=== PATIENT | female | born 1995 | race Caucasian/White ===

== ENCOUNTER 2021-04-07 20:26 | Inpatient (IN) | payer MEDICARE, MEDICAID, SELFPAY ==
[2021-04-07 20:26] VITALS: BP 162/128; PULSE 104; RESP 16; TEMP 36.2; O2SAT 97; BMI 24.7
--- NOTE | 2021-04-07 20:44 | EDS_ITS ---
HPI History of Present Illness Chief Complaint: Substance Abuse Informant: patient and family Narrative Narrative: 26-year-old female states that she would like to go through detox for heroin and fentanyl abuse. The patient states that she was using heroin and fen tanyl before going to jail. She spent about 40 some days in jail and then got out and has continued to use over the past several months. She states that she last used yesterday. She was seen in the emergency department at [facility] yesterday and was referred here. She has previously done rehab in [place]. Patient states that she would like to be in her daughter's life. She states that right now she just feels poorly from the withdrawal symptoms. The patient both smokes and injects her opiates. She also states that she will do any type of drug if it is presented to her [facility] Medical History (Updated 04/07/21 @ 21:[address] David Garcia DO) Opiate addiction PTSD (post-traumatic stress disorder) Home Medications NK 04/07/21 [History Last Taken Unknown] Allergy/AdvReac Type Severity Reaction Status Date / Time Penicillins Allergy PT UNSURE Verified 04/07/21 20:29 OF REACTION Social History (Updated 04/07/21 @ 20:[address] David Garcia DO) Smoking Status: Current every day smoker tobacco type: cigarettes substance use type: heroin and opiates ROS ROS ED ROS Narrative Restlessness Constitutional Constitutional ED: Reports chills and sweats; Denies fever(s) or weight loss Eyes Eyes: Denies change in vision or diplopia ENT ENT ED: Denies ear pain, rhinorrhea or sore throat Cardiovascular Cardiovascular: Denies chest pain, orthopnea, palpitations or racing heartbeat Respiratory/Chest Respiratory/Chest: Denies cough, dyspnea or orthopnea Gastrointestinal Gastrointestinal: Reports abdominal pain and nausea; Denies diarrhea or vomiting Genitourinary Genitourinary ED: Denies dysuria, hematuria or urinary frequency Musculoskeletal Musculoskeletal: Denies arthralgias or myalgias Integumentary Denies abscess or rash Neurologic Neurologic: Reports headache(s); Denies weakness Psychiatric Psychiatric: Denies anxiety, depression, suicidal ideation or suicidal thoughts Endocrine Endocrinology: Denies polydipsia, polyphagia or polyuria Allergic/Immunologic Allergic/Immunologic ED: Denies mouth swelling, tongue swelling or urticaria EXAM Physical Exam Const Vital Signs: 04/07/21 20:26 Temperature 97.2 F L Temperature Source Temporal Pulse Rate 104 H Respiratory Rate 16 Blood Pressure 162/128 H Blood Pressure Mean 139 Pulse Ox 97 Oxygen Delivery Method Room Air Positive well nourished and well developed General Appearance ED: well developed HEENT Reports normocephalic, head/scalp atraumatic, TM's clear and moist mucous membranes HEENT Narrative: Rhinorrhea Negative for trauma Tympanic Membrane ED: Yes TM's clear Eyes PERRL and EOMs intact bilaterally Neck no lymphadenopathy, supple and no JVD Resp normal respiratory effort and clear to auscultation bilaterally Cardio regular rate, regular rhythm and no murmurs GI normal to inspection, nondistended, normoactive bowel sounds and non-tender Palpation: soft Back/Spine no CVA tenderness and normal ROM Extremity Extremity Narrative: Piloerection General Extremety ED: Negative for edema General Extremity: Negative for edema Neuro oriented x3 and CN's II-XII intact bilaterally Sensorium / Orientation: alert Motor Exam: strength 5/5 throughout Psych mental status grossly normal Mood & Affect: Negative for depressed or tearful Skin no rashes or lesions noted and no wounds MDM MDM MDM Narrative Medical decision making narrative: Patient is positive for benzodiazepines cocaine and cannabinoids. test is negative. Patient informed case management that she does not get something for making her feel better she is going to leave. Patient was advised by myself by her grandmother by nursing and by case management that she is not going to feel perfectly fine while going through detox. It will be uncomfortable. I will speak with the hospitalist regarding admission. Lab Data Attestation: I reviewed the patient's lab results. Labs: Laboratory Results - last 24 hr 04/07/21 04/07/21 04/07/21 21:00 21:00 21:00 WBC 6.3 RBC 5.35 Hgb 15.2 H Hct 45.6 MCV 85.2 MCH 28.4 MCHC 33.3 RDW Std Deviation 42.8 RDW Coeff of Hong 13.8 Plt Count 229 MPV 11.8 Immature Gran % (Auto) 0.300 Neut % (Auto) 74.9 H Lymph % (Auto) 19.5 [place] % (Auto) 4.6 Eos % (Auto) 0.2 Baso % (Auto) 0.5 Absolute Neuts (auto) 4.7 Absolute Lymphs (auto) 1.22 Nucleated RBC % 0 Serum , Qual Urine Opiates Screen NEGATIVE Urine Methadone Screen NEGATIVE Ur Barbiturates Screen NEGATIVE Ur Phencyclidine Scrn NEGATIVE Ur Amphetamines Screen NEGATIVE U Methamphetamin-MDMA NEGATIVE U Benzodiazepines Scrn POSITIVE H Urine Cocaine Screen POSITIVE H U Cannabinoids Screen POSITIVE H Ur Drug Screen Comment Ethyl Alcohol < 3.0 04/07/21 21:00 WBC RBC Hgb Hct MCV MCH MCHC RDW Std Deviation RDW Coeff of Hong Plt Count MPV Immature Gran % (Auto) Neut % (Auto) Lymph % (Auto) [place] % (Auto) Eos % (Auto) Baso % (Auto) Absolute Neuts (auto) Absolute Lymphs (auto) Nucleated RBC % Serum , Qual NEGATIVE Urine Opiates Screen Urine Methadone Screen Ur Barbiturates Screen Ur Phencyclidine Scrn Ur Amphetamines Screen U Methamphetamin-MDMA U Benzodiazepines Scrn Urine Cocaine Screen U Cannabinoids Screen Ur Drug Screen Comment Ethyl Alcohol EKG Initial EKG: Attestation: I personally reviewed and interpreted this EKG as follows: Comments: Normal sinus rhythm with a ventricular rate of 72 bpm Discharge Plan Dx/Rx/DC Orders Clinical Impression: Opiate withdrawal, Drug abuse Disposition Disposition: Acute Care Hospital [facility]
--- NOTE | 2021-04-07 20:44 | EKG12_ITS ---
Test Reason : DYSRYTHMIA Blood Pressure : / mmHG Vent. Rate : 072 BPM Atrial Rate : 072 BPM P-R Int : 130 ms QRS Dur : 096 ms QT Int : 386 ms P-R-T Axes : 074 082 068 degrees QTc Int : 422 ms Normal sinus rhythm Normal ECG Confirmed by AMARI ROCHA, STEPHIE ([id number]), development editor LUCILLE THORPE ([id number]) on 04/09/2021 10:54:45 AM Referred By: ROBERT Confirmed By:STEPHIE FITZPATRICK MD
[2021-04-07 21:10] LABS: Absolute Lymphocyte Count 1.22 X10^3/uL (0.83-4.51); Absolute Neutrophil Count 4.7 X10^3/uL (2.0-7.7); Basophil# 0.03 X10^3/uL; Basophil% 0.5 % (0-1); Eosinophil# 0.01 X10^3/uL; Eosinophils% 0.2 % (0-5); Hematocrit 45.6 % (37-47); Hemoglobin 15.2 g/dL (12.0-15.0); Lymphocyte # 1.22 X10^3/ul (0.83-4.51); Lymphocyte % 19.5 % (19-41); Mean Corp Hgb Conc 33.3 g/dL (32-36); Mean Corpuscular Hgb 28.4 pg (27.0-32.0); Mean Corpuscular Volume 85.2 fL (81-99); Mean Platelet Vol. 11.8 fl (6.2-12.0); Monocyte# 0.29 X10^3/uL; Monocyte% 4.6 % (0-10); NRBC Flagged by Analyzer 0 % (0-5); Neutrophil % 74.9 % (47-70); Platelet Count 229 K/mm3 (150-450); RBC Distribution Width CV 13.8 % (11.6-14.6); RBC Distribution Width SD 42.8 fl (35.1-43.9); Red Blood Count 5.35 M/mm3 (4.2-5.4); White Blood Count 6.3 K/mm3 (4.4-11.0)
--- NOTE | 2021-04-07 21:21 | CM.ED ---
MICHAEL Note MICHAEL met with patient and her grandmother, Razia Odonnell [phone]. Patient reports that she does at least 2 grams of fentanyl a day. Last use was Friday at 4am. Patient reports she uses everything including crack. Patient completed the [facility] in [place] in 2020. Patient said that after she completed the program she wanted to still get high.Patient's grandmother said that patient is linked with Ramona Young (Kyle) from [facility] [phone]. Patient has been linked with [employer] and [facility] in the past but reports she has not been going to her appointments. Patient is homeless. Patient's mother has custody of her 2 children that are living. Patient said that she is withdrawing and asked about medication. SW explained the [facility] program including the securing of all her belongings and no phones. Grandmother said that patient does not have a phone. Patient was restless during this interview and made statement If i don't get stuff to feel better I am going home. However, later patient voiced that she wanted to participate in the [facility] program. MICHAEL called [facility] and spoke to Matilda. Matilda will follow up with patient on 04/08/21. Autumn TONY
[2021-04-07 21:34] LABS: Internal QC Validated? YES +Cl - CLEAR BKGD; Pregnancy, Serum, hCG Quali. NEGATIVE Negative
[2021-04-07 21:39] LABS: Alcohol, Blood (Medical)-Serum < 3.0 mg/dL; Amphetamine Urine VISTA NEGATIVE (<1000 ng/mL); Barbiturate Urine VISTA NEGATIVE (< 200 ng/mL); Benzodiazepine Urine VISTA POSITIVE (< 200 ng/mL); Cocaine Urine VISTA POSITIVE (< 300 ng/mL); Ecstacy Urine VISTA NEGATIVE (< 500 ng/mL); Methadone Urine VISTA NEGATIVE (< 300 ng/mL); PCP Urine VISTA NEGATIVE (< 25 ng/mL); THC Urine VISTA POSITIVE (< 50 ng/mL); Vista UDS pH Range 7
[2021-04-07 21:42] LABS: ALB/GLOB Ratio 0.8 RATIO (0.9-2.4); AST(SGOT) 10 U/L (15-37); Alanine Aminotransfer ALT/SGPT 14 U/L (13-56); Albumin, Serum 3.3 g/dL (3.2-5.0); Alkaline Phosphatase 100 U/L (45-117); Anion Gap 6 (5-15); BUN 9 mg/dL (7-18); BUN/Creat Ratio 12.6 RATIO (10-20); Calcium,Total 9.2 mg/dL (8.5-10.1); Chloride 114 mmol/L (98-107); Creatinine, Serum 0.71 mg/dL (0.55-1.02); EST Glomerular Filtration Rate 106 mL/min (>60); Est Glom Filt Rate - Afr Amer 128 mL/min (>60); Glucose 98 mg/dL (74-106); Potassium 3.6 mmol/L (3.5-5.1); Protein, Total 7.3 g/dL (6.4-8.2); Sodium Level 144 mmol/L (136-145)
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
[2021-04-07 23:00] VITALS: BP 162/128; PULSE 104; RESP 16; TEMP 36.2; O2SAT 97
[2021-04-07 23:11] VITALS: O2SAT 100; BMI 26.6
[2021-04-07 23:15] VITALS: BP 114/61; PULSE 84; RESP 18; TEMP 36.8; O2SAT 100
[2021-04-07 23:22] LABS: HIV - WCH Non-Reactive (Nonreactive)
--- NOTE | 2021-04-07 23:47 | PCS.PANDOC ---
PANDEMIC DOCUMENTATION INITIATED: Date: 04/07/21 Time: 6934
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
[2021-04-08] MEDS: Ondansetron 8 MG Tablet PO (00:37)
[2021-04-08] MEDS: Ibuprofen 600 MG Tablet PO ×2 (00:37→14:39)
[2021-04-08] MEDS: Gabapentin 300 MG Capsule PO ×3 (00:37→18:05)
[2021-04-08] MEDS: Dicyclomine 10 MG Capsule 20 MG PO (00:38)
[2021-04-08] MEDS: Methocarbamol 750 MG Tablet 1500 MG PO ×3 (00:38→18:05)
[2021-04-08] MEDS: Buprenorphine HCl 2 MG TAB.SUBL SL ×3 (00:50→16:15)
[2021-04-08 01:55] LABS: Chlamydia Trachomatis by PCR Negative (Negative); Neisserai gonorrhoeae by PCR Negative (Negative); Probe Check PASS; Sample Adequacy Control PASS; Specimen Processing Control PASS
[2021-04-08 02:49] VITALS: BP 128/74; PULSE 102; RESP 18; TEMP 36.8; O2SAT 100
--- NOTE | 2021-04-08 07:41 | PN.HOSP_ITS ---
Subjective Subjective Patient is a 26-year-old gentleman with history of opioid dependence admitted with acute opioid withdrawal Objective Data Objective Data Vital Signs: Vital Signs Temp Pulse Resp BP Pulse Ox 98.3 F 102 H 18 128/74 H 100 04/08/21 02:49 04/08/21 02:49 04/08/21 02:49 04/08/21 02:49 04/08/21 02:49 Oxygen Delivery Method Room Air Weight: 68.2 kg Body Mass Index (BMI) 26.6 Intake & Output: Intake and Output for Last 24 Hours 04/06/21 04/07/21 04/08/21 23:59 23:59 23:59 Intake Total 300 / 300 Balance 300 / 300 Lab / Micro Data Result Diagrams: 04/07/21 21:00 04/07/21 21:00 Labs: Laboratory Results - last 24 hr 04/07/21 21:00: WBC 6.3, RBC 5.35, Hgb 15.2 H, Hct 45.6, MCV 85.2, MCH 28.4, MCHC 33.3, RDW Std Deviation 42.8, RDW Coeff of Hong 13.8, Plt Count 229, MPV 11.8, Immature Gran % (Auto) 0.300, Neut % (Auto) 74.9 H, Lymph % (Auto) 19.5, [place] % (Auto) 4.6, Eos % (Auto) 0.2, Baso % (Auto) 0.5, Absolute Neuts (auto) 4.7, Absolute Lymphs (auto) 1.22, Nucleated RBC % 0 04/07/21 21:00: Sodium 144, Potassium 3.6, Chloride 114 H, Carbon Dioxide 24.0, Anion Gap 6, BUN 9, Creatinine 0.71, Estim Creat Clear Calc 100.20, Est GFR (MDRD) Af Amer 128, Est GFR (MDRD) Non-Af 106, BUN/Creatinine Ratio 12.6, Glucose 98, Calcium 9.2, Total Bilirubin 0.30, AST 10 L, ALT 14, Alkaline Phosphatase 100, Total Protein 7.3, Albumin 3.3, Globulin 4.0, Albumin/Globulin Ratio 0.8 L 04/07/21 21:00: Ethyl Alcohol < 3.0 04/07/21 21:00: Urine Opiates Screen NEGATIVE, Urine Methadone Screen NEGATIVE, Ur Barbiturates Screen NEGATIVE, Ur Phencyclidine Scrn NEGATIVE, Ur Amphetamines Screen NEGATIVE, U Methamphetamin-MDMA NEGATIVE, U Benzodiazepines Scrn POSITIVE H, Urine Cocaine Screen POSITIVE H, U Cannabinoids Screen POSITIVE H, Ur Drug Screen Comment 04/07/21 21:00: Serum , Qual NEGATIVE 04/07/21 21:00: HIV 1&2 Antibody Non-Reactive 04/07/21 22:30: Chlam trachomat DNA PCR Negative, N.gonorrhoeae DNA (PCR) Negative Micro: Microbiology 04/07/21 22:30 Nasal Secretion SARS-CoV-2 Antigen (Rapid) - Final Physical Exam Narrative GENERAL: cooperative HEENT: Atraumatic; EYES; Anicteric, Normal Conjunctiva NECK; supple, normal thyroid, RESPIRATORY: Diminished to auscultation CARDIOVASCULAR: Regular S1 S2, GI: soft, normoactive bowel sounds, : No Renal angle tenderness; EXTREMITIES: No edema, no clubbing, MUSCULOSKELETAL: no muscle waisting NEURO: Awake; no lateralizing signs. SKIN: No Rash PSYCH; Flat affect Assessment & Plan Assessment/Plan (1) Opiate withdrawal: PLAN: 1. Acute opiate withdrawal ? Admitted to regular nursing floor undergoing medical stabilization with Subutex taper 2. Polysubstance abuse ? Counseled on cessation 3. Tobacco dependence - Counseled on cessation, offered nicotine patch for tobacco cravings 4. DVT prophylaxis ? Low risk did encourage early ambulation Charges/Coding Visit Charges Inpatient E&M: 24363 Subs Hosp L2
[2021-04-08 13:00] VITALS: BP 116/75; PULSE 102; RESP 22; TEMP 37
[2021-04-08] MEDS: Acetaminophen 325 MG Tablet 650 MG PO (14:40)
[2021-04-08 18:33] VITALS: BP 122/74; PULSE 86; RESP 18; TEMP 36.3; O2SAT 98
[2021-04-08] MEDS: cloNIDine HCl 0.1 MG Tablet PO (18:39)
[2021-04-08 21:16] VITALS: BP 102/62; PULSE 90; RESP 18; TEMP 36.9; O2SAT 95
[2021-04-09] MEDS: Methocarbamol 750 MG Tablet 1500 MG PO ×2 (00:37→10:03)
[2021-04-09] MEDS: Acetaminophen 325 MG Tablet 650 MG PO (00:37)
[2021-04-09] MEDS: hydrOXYzine PAM 25 MG Capsule 50 MG PO ×2 (00:37→10:03)
[2021-04-09] MEDS: traZODone 100 MG Tablet PO (00:38)
[2021-04-09] MEDS: Buprenorphine HCl 2 MG TAB.SUBL SL ×2 (00:38→08:26)
[2021-04-09 04:23] VITALS: BP 110/49; PULSE 107; RESP 18; TEMP 36.9; O2SAT 95
[2021-04-09] MEDS: Gabapentin 300 MG Capsule PO (04:26)
[2021-04-09 07:23] VITALS: O2SAT 95
--- NOTE | 2021-04-09 08:08 | PCM.PN.HOSP ---
Subjective Subjective Follow-up on acute opioid withdrawal: Patient was seen and examined. No new complaints. No acute events. Objective Data Objective Data Vital Signs: Vital Signs Temp Pulse Resp BP Pulse Ox 98.4 F 107 H 18 110/49 L 95 04/09/21 04:23 04/09/21 04:23 04/09/21 04:23 04/09/21 04:23 04/09/21 07:23 Oxygen Flow Rate (L/min) 99 Oxygen Delivery Method Room Air Weight: 68.2 kg Body Mass Index (BMI) 26.6 Intake & Output: Intake and Output for Last 24 Hours 04/07/21 04/08/21 04/09/21 23:59 23:59 23:59 Intake Total 300 / 600 800 / 800 Balance 300 / 600 800 / 800 Medical Nutrition Assessment Dietitian: Malnutrition Criteria Met Start: 04/08/21 10:52 Freq: Status: Active Protocol: Document 04/08/21 10:52 ROBERTA (Rec: 04/08/21 10:52 ROBERTA [id number]) Nutrition Malnutrition Evidence of Malnutrition Exists Yes Malnutrition (severe): Social/Behavioral/ Environmental Evidenced By Suboptimal Energy Intake ( Severe),Weight Loss (Severe) Clinical Problem Chronic Disease or Condition Related Malnutrition Etiology related to homelessness and drug addiction making it difficult for pt to secure food to eat and not meeting estimated nutritional needs Signs/Symptoms as evidenced by <50% po intake and 16.9% wt loss x 8 months Status Active Problem Recommendation Dietitian Recommendations/Changes Continue diet as ordered with ONS at [facility] Will consult social organization professor for pt to see re: homelessness and limits access to food Lab / Micro Data Result Diagrams: 04/07/21 21:00 04/07/21 21:00 Micro: Microbiology 04/07/21 22:30 Nasal Secretion SARS-CoV-2 Antigen (Rapid) - Final Physical Exam Narrative Physical exam: General: Alert, Oriented x3, Cooperative, No apparent distress, Well developed HEENT: Atraumatic Oral: Moist Mucosa Neck: Supple Lungs: Clear to auscultation Cardiovascular: HS I+II, regular, no murmurs Abdomen: Bowel Sounds Present, Soft, Non Tender Extremities: No edema Assessment & Plan Assessment/Plan (1) Opiate withdrawal: PLAN: 1. Acute opiate withdrawal, improved Continue on Subutex withdrawal protocol 2. Nicotine dependence, on replacement 3. Polysubstance abuse, advised to quit 4. Severe malnutrition, solution designer consulted, on supplements 5. DVT prophylaxis - low risk, early ambulation Charges/Coding Visit Charges Inpatient E&M: 21914 Subs Hosp L2
[2021-04-09 09:48] VITALS: BP 105/62; PULSE 99; RESP 16; TEMP 36.9; O2SAT 99
--- NOTE | 2021-04-09 14:37 | ADDICTION ---
This movie writer met with PT to conduct ASAM, MSE, AUDIT and DUDIT assessments and to plan for d/c. PT A+Ox4 and participated actively. All assessments completed and placed in PT's chart. PT plans to f/u with individual counselor at [facility] for outpatient treatment and counseling services. PT did not indicate a need for transportation post d/c from [facility].
== END 2021-04-09 16:40 | disposition left against medical advice (07) | DRG 894 ==
LOC: ED 21:40 → MS2 22:58
PROVIDERS: Admitting Provider Family Medicine; Emergency Provider Emergency Medicine; Visit Provider Internal Medicine
DX: F11.23 Opioid dependence with withdrawal (principal); E43 Unspecified severe protein-calorie malnutrition; T76.21XA Adult sexual abuse, suspected, initial encounter; F15.10 Other stimulant abuse, uncomplicated; F14.10 Cocaine abuse, uncomplicated; F17.210 Nicotine dependence, cigarettes, uncomplicated; Z59.00 Homelessness unspecified; Z20.822 Contact with and (suspected) exposure to COVID-19; F43.10 Post-traumatic stress disorder, unspecified; R03.0 Elevated blood-pressure reading, without diagnosis of hypertension; Z68.26 Body mass index [BMI] 26.0-26.9, adult
CPT/HCPCS: 36415; 80053; 80307; 82077; 84703; 85025; 86703; 87426; 87491; 87591; 93005; 97802; 99283; A4216